=== PATIENT | female | born 1935 | race Caucasian/White ===

== ENCOUNTER → 2017-01-04 | Outpatient (CLI) | payer MEDICARE, OTHER ==
[~2017-01-04] MED LIST: ANTI25TA2 PO; CHOL50006 PO; FOSA70TA PO
--- NOTE | 2017-01-04 10:17 | RADRPT ---
EXAM DATE/TIME: 01/04/2017 09:43 [facility] COMPARISON: No previous studies available for comparison. INDICATIONS : Preoperative chest X-Ray. MEDICAL HISTORY : None. SURGICAL HISTORY : None. ENCOUNTER: Initial ACUITY: 1 day PAIN SCORE: 0/10 LOCATION: Bilateral chest FINDINGS: PA and lateral views of the chest demonstrate the lungs to be symmetrically aerated without evidence of mass, infiltrate or effusion. The heart size is moderately enlarged.. Osseous structures are int act. There is a large hiatal hernia at the GE junction. No prior studies are available for comparison . CONCLUSION: 1. No acute pulmonary infiltrates 2. Compensated cardiomegaly 3. Large hiatal hernia Ibrahima Grant MD on January 04, 2017 at 10:15 Board Certified Radiologist. This report was verified electronically.
[2017-01-04 11:02] LABS: BASOPHIL % 0.9 % (0.0-2.0); EOSINOPHIL # 0.2 TH/MM3 (0-0.4); EOSINOPHIL % 3.9 % (0.0-4.0); HEMATOCRIT 41.3 % (35.0-46.0); HEMO FLAGS DIFF FINAL; LYMPH % 28.7 % (9.0-44.0); LYMPHOCYTE # 1.5 TH/MM3 (1.0-4.8); MEAN CELL VOLUME 88.8 FL (80.0-100.0); MEAN CORPUSCULAR HEMOGLOBIN 29.3 PG (27.0-34.0); MONO % 8.4 % (0.0-8.0); NEUT % 58.1 % (16.0-70.0); PLATELET COUNT 205 TH/MM3 (150-450); RED BLOOD COUNT 4.65 MIL/MM3 (4.00-5.30); RED CELL DISTRIBUTION WIDTH 14.1 % (11.6-17.2); WHITE BLOOD COUNT 5.1 TH/MM3 (4.0-11.0)
[2017-01-04 11:20] LABS: WESTERGREN SEDIMENTATION RATE 13 mm/hr (0-30)
[2017-01-04 11:22] LABS: ANION GAP 6 MEQ/L (5-15); AST (GOT) 14 U/L (15-37); BICARBONATE 27.2 MEQ/L (21.0-32.0); BLOOD UREA NITROGEN 15 MG/DL (7-18); CHLORIDE 110 MEQ/L (98-107); GLOMERULAR FILTRATION RATE 79 ML/MIN (>89); GLUCOSE,FASTING 83 MG/DL (74-99); POTASSIUM 4.2 MEQ/L (3.5-5.1); SODIUM (NA) 143 MEQ/L (136-145)
[2017-01-04 11:26] LABS: ALKALINE PHOSPHATASE 52 U/L (45-117); ALT (GPT) 22 U/L (10-53); TOTAL BILIRUBIN ADULT 0.8 MG/DL (0.2-1.0)
[2017-01-04 11:56] LABS: BACTERIA, URINE OCC /hpf; BLOOD, URINE NEG (NEG); COMMENT (UR) CULT NOT INDICATED; CULTURE IF INDICATED CULT NOT INDICATED; GLUCOSE,URINE NEG (NEG); KETONE, URINE NEG (NEG); MUCUS URINE FEW /lpf (OCC); NITRITE,URINE NEG (NEG); PH, URINE 6.5 (5.0-8.5); SQUAMOUS EPITHELIAL CELL URINE 4 /hpf (0-5); URINE COLOR YELLOW (YELLW/STRAW)
--- NOTE | 2017-01-04 21:15 | EKG ---
Date Performed: 01/04/2017 Time Performed: 09:10:05 PTAGE: 81 years EKG: Sinus rhythm NORMAL ECG NO PREVIOUS TRACING DOCTOR: Mendez Layton Interpretating Date/Time 01/04/2017 21:14:57
== END ==
LOC: CPRE 08:40
PROVIDERS: ATTEND Orthopaedic Surgery
DX: Z01.810 Encounter for preprocedural cardiovascular examination (principal); Z01.811 Encounter for preprocedural respiratory examination; Z01.812 Encounter for preprocedural laboratory examination; M17.11 Unilateral primary osteoarthritis, right knee
CPT/HCPCS: 36415; 71020; 80053; 81001; 85025; 85652; 86140; 93005

== ENCOUNTER 2017-01-30 08:28 | Inpatient (IN) | payer MEDICARE, OTHER ==
--- NOTE | 2017-01-29 15:09 | MH ---
cc: MYCHAL DICKSON DATE OF ADMISSION: 01/30/2017 ADMITTING DIAGNOSIS End-stage osteoarthritis, right knee. PROPOSED SURGERY Total knee replacement arthroplasty, right knee. PRESENT HISTORY The patient has had problems with this knee for many years. She had a series of injections about five or six years ago, viscosupplementation, that they gave her relief for some time. The pain came back associated with instability and so she saw me in June of this year. She had evaluation and x-rays and she at that time wanted to repeat the viscosupplementation. She saw me on July 09, 2016 when she told me that she did not want to go through viscosupplementation, particularly considering the expense involved and wanted me to give her a shot of cortisone which was done. She had good relief of symptoms from it. She came back on December 31, 2016 indicating that she had recurrent pain and now quite concerned about instability and therefore requested that we proceed with total knee replacement arthroplasty. The diagnosis, the treatment and prognosis, the potential risks, hazards, complications and expected results were all discussed in detail. For detailed informed consent, please refer to my office records. Informed consent is obtained. PERSONAL/SOCIAL HISTORY She does not smoke or drink. She does not work. PAST MEDICAL HISTORY Nothing other than arthritis. PAST SURGICAL HISTORY 1. Hysterectomy. 2. Tubal ligation. 3. Polypectomy. 4. Cataract extraction. ALLERGIES None. PHYSICAL EXAMINATION An average built and nourished white female whose right knee has mild valgus deformity. There is mild swelling. No redness or warmth. She has tenderness over the lateral joint line. She has good range of motion of the right knee but no instability. There is exquisite tenderness over the lateral joint line. She has palpable pedal pulses and she moves her toes well. No distal edema. HEENT: Head normocephalic. Pupils react to light. Face symmetrical. HEART: Regular rhythm. No murmurs. LUNGS: Clear to auscultation. ABDOMEN: Soft and supple. ASSESSMENT AND PLAN The patient's preoperative work-up is satisfactory. Postoperative course, pain management and my specific protocol for knee replacements are all discussed. She wants to go to a assisted facility after surgery. This will be arranged. MD DEMETRIS Toscano/CHANCE /2:56 PM /3:03 PM
[~2017-01-30] VITALS: Ht 165.1 cm; Wt 79.0 kg
[2017-01-30] MEDS ORDERED: ceFAZolin 2 GM PREMIX 50 ML IV SCH (09:00)
[2017-01-30] MEDS ORDERED: METOPROLOL TARTRATE 25 MG TAB PO PRN (09:00)
[2017-01-30] MEDS ORDERED: POVIDONE IODINE 7.5% SCRUB 118 ML BOTTLE TOPICAL SCH (09:00)
[2017-01-30] MEDS ORDERED: POVIDONE IODINE 5% (ANTISEPSIS KIT) 4 APPLICATIONS EACH NARE PRN (09:00)
[2017-01-30] MEDS ORDERED: SODIUM CHLORID 0.9% 500 ML IV PRN (09:00)
[2017-01-30] MEDS ORDERED: CHLORHEXIDINE GLUCONATE 2 % 1 PACK (2 CLOTHS) TOPICAL PRN (09:00)
[2017-01-30] MEDS ORDERED: LACTATED RINGER'S 1000 ML IV PRN (09:00)
[2017-01-30] MEDS ORDERED: INSULIN HUMAN REGULAR 1,000 UNITS/10 ML VIAL SQ PRN (09:00)
[2017-01-30] MEDS ORDERED: VANCOMYCIN 1000 MG/NS 250 ML (for <70 kg) IV SCH ×2 (09:00)
[2017-01-30] MEDS ORDERED: ASPI-183 PO (09:28)
[2017-01-30] MEDS ORDERED: GLUC15009 PO (09:28)
[2017-01-30] MEDS ORDERED: MAGN100T2 PO (09:28)
[2017-01-30] MEDS ORDERED: GINK60TA10 PO (09:28)
[2017-01-30] MEDS ORDERED: CENTCHW3 PO (09:28)
[2017-01-30] MEDS ORDERED: VITA200C3 PO (09:28)
[2017-01-30] MEDS ORDERED: MISC1TAB PO (09:28)
[2017-01-30] MEDS ORDERED: CALC1TAB87 PO (09:28)
[2017-01-30] MEDS ORDERED: [UNRECOGNIZED DRUG - CODE] PO (09:28)
[2017-01-30] MEDS ORDERED: ASCO500C PO (09:28)
[2017-01-30] MEDS ORDERED: ROPIVACAINE PERI-ARTICULAR INJECTION. P-ARTICULR SCH ×5 (09:30)
[2017-01-30] MEDS ORDERED: SODIUM CHLORIDE 0.9% IV SCH ×3 (09:30→15:00)
[2017-01-30] MEDS ORDERED: TRANEXAMIC ACID IV SCH ×3 (09:30→15:00)
[2017-01-30] MEDS ORDERED: TOBRAMYCIN SULFATE 1200 MG VIAL ONE (10:31)
[2017-01-30] MEDS ORDERED: GENTAMICIN SULFATE 80 MG/2 ML VIAL ONE (10:31)
[2017-01-30] MEDS ORDERED: BUPIVACAINE HCL PF 0.5% 30 ML VIAL ONE (11:22)
[2017-01-30] MEDS ORDERED: SODIUM CHLORIDE 0.9% 20 ML VIAL ONE (11:22)
[2017-01-30] MEDS ORDERED: DEXAMETHASONE SOD PHOS PF 10 MG/ML VIAL ONE (11:22)
[2017-01-30] MEDS ORDERED: PHENYLEPH/NS 1000 MCG/10 ML SYR IV ONE (12:00)
[2017-01-30] MEDS ORDERED: PROPOFOL 200 MG/20 ML AMP IV ONE (12:00)
[2017-01-30] MEDS ORDERED: GLYCOPYRROLATE 1 MG/5 ML SYRINGE IV PUSH ONE (12:00)
[2017-01-30] MEDS ORDERED: NEOSTIGMINE 3 MG/3 ML SYR IV ONE (12:00)
[2017-01-30] MEDS ORDERED: MIDAZOLAM HCL 2 MG/2 ML VIAL IV ONE (12:00)
[2017-01-30] MEDS ORDERED: ONDANSETRON HCL 4 MG/2 ML VIAL IV PUSH ONE (12:00)
[2017-01-30] MEDS ORDERED: ROCURONIUM INJ 50 MG/5 ML SYRINGE IV PUSH ONE (12:00)
[2017-01-30] MEDS ORDERED: LIDOCAINE HCL 1% PF 5 ML SYRINGE OTHER ONE (12:00)
[2017-01-30] MEDS ORDERED: DEXAMETHASONE SOD PHOS 4 MG/ML VIAL IV ONE (12:00)
[2017-01-30] MEDS ORDERED: MORPHINE SULFATE 30 MG/30 ML PCA IV SCH (13:45)
[2017-01-30] MEDS ORDERED: Post-op Orders (for Pharmacy) MISC XX ONE (13:45)
[2017-01-30] MEDS ORDERED: NALOXONE HCL 0.4 MG/ML AMP IV PUSH PRN (13:45)
[2017-01-30] MEDS ORDERED: SODIUM CHLORIDE 0.9% FLUSH 5 ML FLUSH IVF PRN (13:45)
[2017-01-30] MEDS ORDERED: ONDANSETRON HCL 4 MG/2 ML VIAL IVP PRN (13:45)
[2017-01-30] MEDS ORDERED: ACETAMINOPHEN/HYDROcodone 325 MG/5 MG TAB PO PRN (13:45)
[2017-01-30] MEDS ORDERED: diphenhydrAMINE HCL 50 MG/ML VIAL IV PUSH PRN (13:45)
[2017-01-30] MEDS ORDERED: DO NOT ADM ANY ANTICOAGULANT DRUGS PRN (13:49)
--- NOTE | 2017-01-30 14:25 | MP ---
cc: MYCHAL DIOP DATE OF SURGERY: 01/30/2017 PREOPERATIVE DIAGNOSIS Osteoarthritis right knee with a valgus deformity. POSTOPERATIVE DIAGNOSIS Osteoarthritis right knee with a valgus deformity. OPERATIVE PROCEDURE Total knee replacement arthroplasty right knee using Biomet cemented components, femur 62.5 mm, tibia 67 mm, patella was not resurfaced. Polyethylene insert [address] Diop. ANESTHESIA General. TECHNIQUE After induction of general anesthesia and adductor block, the right lower extremity was thoroughly prepped with alcohol and ChloraPrep and draped in routine fashion. After application of Esmarch bandage the tourniquet was inflated to 300 mmHg. The midline slightly medial incision was made, deepened through subcutaneous tissue, limited flaps were raised. Medial parapatellar arthrotomy was carried out. As noted in valgus knees the tissue on the medial side very thin and had to be carefully elevated off the tibia and protected throughout the procedure. Debridement of the joint was carried out. Femoral canal opened anterior to the posterior cruciate ligament and the distal femoral cutting guide set at 60 degrees valgus was used to do the distal cut. The cut was not adequate and therefore it was recessed 2 mm. External tibial guide was used to cut the tibia referencing 6 mm in the central portion of medial tibial plateau. The bone was all cleaned up, the joint was debrided. AP femoral guide was used referencing epicondylar axis and the AP Whitesides line and set at proper external rotation and cut was made for a 65 mm femoral implant as indicated by the measurements. The bony surfaces prepared to receive the trial and the trials were implanted and it appears that the femur could be smaller in the medial lateral dimension and therefore using proper technique, femur size was reduced to 62.5 mm without notching the anterior cortex. Final trial implants were placed and with a 16-mm insert there is good extension, good flexion, good stability and good tracking. Patella was examined and there was no bare bone. Patella was quite small. Osteophytes were excised and it was decided not to resurface the patella. Bony surfaces were thoroughly lavaged and dried. A mixture of ropivacaine, clonidine, epinephrine and Toradol were injected periarticular, femoral canal plugged with bone and using 2 units of Simplex cement with 1200 mg of tobramycin in it, the tibia was cemented first, then the femur and the knee extended with a 16-mm insert. Once cement solidified and all excess cement was removed, the knee was tested and looks good. Joints were thoroughly lavaged and suctioned out without the spacer. The 16 mm spacer was then introduced and clipped. Final position, alignment, stability are all good. An eighth-inch Hemovac drain was left in the suprapatellar pouch. Closure was carried out in mid flexion with a few interrupted #2 Vicryl sutures and the rest with #2 Quill and 2-0 Vicryl for the fat and 3-0 Stratafix for the skin with Steri-Strips. Dressing was applied with Xeroform, 4x4s, ABD, Sof-Rol, ice bladder and Juan Antonio bandage. The patient was transferred to the recovery room in satisfactory condition. The patient tolerated the procedure well. TRANSFUSIONS AND COMPLICATIONS None. POSTOPERATIVE CONDITION Satisfactory. PROGNOSIS Good. ESTIMATED BLOOD LOSS 100 ccs. TOURNIQUET TIME 57 __(tourniquet deflated immediately after the cementing was completed.) MD DEMETRIS Toscano/CHAYA /1:46 PM /2:06 PM
--- NOTE | 2017-01-30 14:28 | RADRPT ---
EXAM DATE/TIME: 01/30/2017 14:13 [facility] COMPARISON: No previous studies available for comparison. INDICATIONS : Post op total right knee. MEDICAL HISTORY : None. SURGICAL HISTORY : None. ENCOUNTER: Initial ACUITY: 1 day PAIN SCORE: 0/10 LOCATION: Right Knee FINDINGS: AP and lateral views of the knee following arthroplasty reveals a prosthesis in anatomic alignment. F racture is not appreciated. Surgical drain is evident CONCLUSION: Status post total knee arthroplasty. Duane Fletcher MD FACR Board Certified Radiologist. This report was verified electronically.
[2017-01-30] MEDS: SODIUM CHLOR 0.9% 1000 ML INJ 1,000 ML IV SCH ×2 (14:34→23:15)
[2017-01-30] MEDS: KETOROLAC TROMETHAMINE 30 MG/ML (IVP) VIAL IVP SCH ×2 (16:00→23:16)
[2017-01-30] MEDS ORDERED: ceFAZolin INJ 2 MG in SODIUM CHLORIDE 0.9% INJ 100 ML IV SCH (18:00)
[2017-01-30] MEDS ORDERED: TEMAZEPAM 15 MG CAP PO PRN (21:00)
[2017-01-30] MEDS: SODIUM CHLORIDE 0.9% FLUSH 5 ML FLUSH IVF SCH (23:04)
[2017-01-31] VITALS (7 sets, daily range): BP systolic 104–119; BP diastolic 42–70; PULSE 65–86; RESP 16–17; TEMP 96–99.1; O2SAT 94–99
[2017-01-31] MEDS: ceFAZolin 2 GM PREMIX 50 ML IV SCH ×2 (02:49→10:04)
[2017-01-31 07:04] LABS: HEMATOCRIT 34.7 % (35.0-46.0); REVIEW FLAG FINAL
[2017-01-31 07:34] LABS: BICARBONATE 27.2 MEQ/L (21.0-32.0); POTASSIUM 4.5 MEQ/L (3.5-5.1)
[2017-01-31] MEDS: SODIUM CHLOR 0.9% 1000 ML INJ 1,000 ML IV SCH ×2 (08:28→19:32)
[2017-01-31] MEDS: KETOROLAC TROMETHAMINE 30 MG/ML (IVP) VIAL IVP SCH ×3 (08:30→23:36)
[2017-01-31] MEDS: MULTIVITAMINS/MINERALS THERAPEUTIC TAB PO SCH (08:30)
[2017-01-31] MEDS: SODIUM CHLORIDE 0.9% FLUSH 5 ML FLUSH IVF SCH ×2 (08:30→21:48)
[2017-01-31] MEDS: CELECOXIB 200 MG CAP PO SCH (08:30)
[2017-01-31] MEDS: ACETAMINOPHEN 1000 MG/100 ML VIAL IV SCH ×2 (08:30→21:47)
[2017-01-31] MEDS: ENOXAPARIN SODIUM 30 MG/0.3 ML SYRINGE SQ SCH (13:07)
[2017-01-31] MEDS ORDERED: ENOX30P SQ (14:47)
[2017-01-31] MEDS ORDERED: HYDR-3516 PO (14:47)
--- NOTE | 2017-01-31 14:53 | PD.ORT.PN ---
Subjective Post Op Day #: 1 Pain Scale: not much Subjective Remarks I think I am doing OK Range of Motion 10 to 100 degs Objective Vitals Last 72 hours Impressions Knee X-Ray 01/30/17 1332 Signed Impressions: Service Date/Time: Monday, January 30, 2017 14:13 - CONCLUSION: Status post total knee arthroplasty. Duane Fletcher MD Vital Signs Date Time Temp Pulse Resp B/P (MAP) Pulse Ox O2 Delivery O2 Flow Rate FiO2 01/31/17 08:00 97.3 70 16 119/56 (77) 99 01/31/17 04:00 98.9 77 16 115/70 (85) 98 01/31/17 00:00 99.1 86 17 118/58 (78) 95 01/30/17 21:41 Nasal Cannula 2.00 01/30/17 20:00 87 18 108/56 (73) 95 Nasal Cannula 2 01/30/17 18:00 85 18 100/58 (72) 94 Nasal Cannula 2 01/30/17 17:00 84 14 122/56 (78) 96 Nasal Cannula 2 01/30/17 16:00 94 18 138/68 (91) 98 Nasal Cannula 2 01/30/17 15:00 76 16 123/62 (82) 95 Nasal Cannula 2 I/O 01/30/17 01/30/17 01/30/17 01/31/17 01/31/17 01/31/17 07:00 15:00 23:00 07:00 15:00 23:00 Intake Total 449 ml 50 ml Output Total 400 ml 620 ml 250 ml Balance 49 ml -570 ml -250 ml Intake IV Total 449 ml 50 ml Output Urine Total 400 ml 500 ml 250 ml Drainage Total 120 ml Result Diagram: 01/31/17 0550 01/31/17 0550 Objective Remarks IN WC going to class. Moves knee and toes well DC plan discussed Assessment & Plan Ortho Post Op Day #: 1 Problem List: Assessment and Plan Doing well post right TKA To SNF in am Jose D Diop MD Jan 31, 2017 14:53
[2017-01-31] MEDS: ACETAMINOPHEN/HYDROcodone 325 MG/5 MG TAB PO PRN (19:36)
[2017-01-31] MEDS: DOCUSATE SODIUM 100 MG CAP PO SCH (21:48)
[2017-01-31] MEDS ORDERED: VANCOMYCIN 1,000 MG/NS 250 ML IV SCH ×2 (23:00)
[2017-01-31] MEDS ORDERED: VANCOMYCIN INJ 1 GM in SODIUM CHLOR 0.9% 250 ML INJ 250 ML IV SCH (23:00)
[2017-02-01] VITALS (8 sets, daily range): BP systolic 103–140; BP diastolic 49–71; PULSE 70–102; RESP 16–18; TEMP 97.1–99.1; O2SAT 92–97
[2017-02-01] MEDS: ENOXAPARIN SODIUM 30 MG/0.3 ML SYRINGE SQ SCH ×2 (01:27→12:24)
[2017-02-01] MEDS: SODIUM CHLOR 0.9% 1000 ML INJ 1,000 ML IV SCH ×3 (05:32→23:20)
--- NOTE | 2017-02-01 07:29 | PD.ORT.PN ---
Subjective Post Op Day #: 2 Pain Scale: comfortable Subjective Remarks Doing well, would like to wait till tomorrow for discharge Range of Motion Able to do quads and SLR Objective Vitals Vital Signs Date Time Temp Pulse Resp B/P (MAP) Pulse Ox O2 Delivery O2 Flow Rate FiO2 02/01/17 04:00 97.4 75 16 127/58 (81) 93 02/01/17 00:00 99.1 85 16 103/51 (68) 97 01/31/17 19:00 96.0 86 17 113/56 (75) 98 01/31/17 16:00 97.0 72 16 105/50 (68) 95 01/31/17 12:00 96.8 65 16 104/42 (62) 94 01/31/17 10:28 96 21 01/31/17 08:00 97.3 70 16 119/56 (77) 99 I/O 01/31/17 01/31/17 01/31/17 02/01/17 02/01/17 02/01/17 07:00 15:00 23:00 07:00 15:00 23:00 Intake Total 50 ml 50 ml 480 ml 300 ml Output Total 620 ml 250 ml Balance -570 ml -200 ml 480 ml 300 ml Intake Oral 480 ml 300 ml IV Total 50 ml 50 ml Output Urine Total 500 ml 250 ml Drainage Total 120 ml # Voids 2 2 # Bowel Movements 0 0 Result Diagram: 01/31/17 0550 01/31/17 0550 Objective Remarks Sleeping comfortably in bed. Wakes up easily. Dressings dry, moves toes well Assessment & Plan Ortho Post Op Day #: 2 Problem List: Assessment and Plan Doing well post right TKA To SNF in am Jose D Diop MD Feb 01, 2017 07:29
[2017-02-01] MEDS: SODIUM CHLORIDE 0.9% FLUSH 5 ML FLUSH IVF SCH ×2 (09:00→21:47)
[2017-02-01] MEDS: ACETAMINOPHEN/HYDROcodone 325 MG/5 MG TAB PO PRN (09:33)
[2017-02-01] MEDS: CELECOXIB 200 MG CAP PO SCH (09:33)
[2017-02-01] MEDS: DOCUSATE SODIUM 100 MG CAP PO SCH ×2 (09:33→21:45)
[2017-02-01] MEDS: MULTIVITAMINS/MINERALS THERAPEUTIC TAB PO SCH (09:34)
[2017-02-01] MEDS: ACETAMINOPHEN 1000 MG/100 ML VIAL IV SCH ×2 (09:34→21:46)
[2017-02-01] MEDS: KETOROLAC TROMETHAMINE 30 MG/ML (IVP) VIAL IVP SCH (09:34)
[2017-02-01] MEDS ORDERED: MAGNESIUM HYDROXIDE SUSP 30 ML CUP PO PRN (11:00)
[2017-02-01] MEDS ORDERED: LACTULOSE SYRUP 20 GM/30 ML CUP PO PRN (11:00)
[2017-02-02] VITALS: BP 121/58; PULSE 80; RESP 18; TEMP 98.5; O2SAT 95
[2017-02-02] MEDS: ENOXAPARIN SODIUM 30 MG/0.3 ML SYRINGE SQ SCH ×2 (00:43→13:24)
[2017-02-02 08:00] VITALS: BP 132/63; PULSE 75; RESP 18; TEMP 98.1; O2SAT 95
[2017-02-02] MEDS: DOCUSATE SODIUM 100 MG CAP PO SCH (09:00)
[2017-02-02] MEDS: ACETAMINOPHEN 1000 MG/100 ML VIAL IV SCH (09:03)
[2017-02-02] MEDS: MULTIVITAMINS/MINERALS THERAPEUTIC TAB PO SCH (09:03)
[2017-02-02] MEDS: CELECOXIB 200 MG CAP PO SCH (09:03)
[2017-02-02] MEDS: SODIUM CHLORIDE 0.9% FLUSH 5 ML FLUSH IVF SCH (09:04)
--- NOTE | 2017-02-02 11:13 | PD.ORT.PN ---
Subjective Post Op Day #: 3 Pain Scale: 2 Subjective Remarks Doing well, ready for discharge Distance Walked to bathroom etc Objective Vitals Vital Signs Date Time Temp Pulse Resp B/P (MAP) Pulse Ox O2 Delivery O2 Flow Rate FiO2 02/02/17 09:33 18 02/02/17 08:00 98.1 75 18 132/63 (86) 95 02/02/17 00:00 98.5 80 18 121/58 (79) 95 02/01/17 21:30 96 21 02/01/17 20:00 97.2 85 18 139/64 (89) 95 02/01/17 16:00 97.3 88 16 125/59 (81) 93 02/01/17 12:00 97.1 102 16 107/49 (68) 92 I/O 02/01/17 02/01/17 02/01/17 02/02/17 02/02/17 02/02/17 07:00 15:00 23:00 07:00 15:00 23:00 Intake Total 300 ml 580 ml 480 ml 240 ml Balance 300 ml 580 ml 480 ml 240 ml Intake Oral 300 ml 580 ml 480 ml 240 ml # Voids 2 3 1 2 # Bowel Movements 0 0 1 Result Diagram: 01/31/17 0550 01/31/17 0550 Objective Remarks sitting OOB, moves knee well 10deg to 100 deg. Dressings dry, moves toes well Assessment & Plan Ortho Post Op Day #: 3 Problem List: Assessment and Plan Doing well post right TKA To SNF today Jose D Diop MD Feb 02, 2017 11:13
--- NOTE | 2017-02-02 11:16 | HHI.DS ---
Discharge Summary Admission Date Jan 30, 2017 at 08:28 Discharge Date: Feb 02, 2017 Admitting Diagnosis OA right knee Diagnosis: (1) Total knee replacement status Diagnosis: Principal ICD Codes: Z96.659 - Presence of unspecified artificial knee joint Procedures TKA right Brief History This is a 81 year old female patient with long history of painful knee treated non op.Now has instability feeling in addition to pain. so, admitted for TKA CBC/BMP: 01/31/17 0550 01/31/17 0550 Significant Findings Laboratory Tests Test 01/31/17 05:50 Hematocrit 34.7 % (35.0-46.0) Calcium Level 7.9 MG/DL (8.5-10.1) Chloride Level 108 MEQ/L (98-107) Estimat Glomerular Filtration Rate 72 ML/MIN (>89) Imaging Last 72 hours Impressions Knee X-Ray 01/30/17 1332 Signed Impressions: Service Date/Time: Saturday, January 30, 2017 14:13 - CONCLUSION: Status post total knee arthroplasty. Duane Fletcher MD PE at Discharge sitting OOB, moves knee well 10deg to 100 deg. Dressings dry, moves toes well Hospital Course Routine TKA post op protocol with ice machine, pain management and rehab. She did very well Pt Condition on Discharge: Good Discharge Disposition: Discharge to SNF Discharge Instructions Diet Instructions: As Tolerated, No Restrictions Activities You Can Perform: Weight Bearing as Mary Activities to Avoid: Prolonged Standing, Bathing, Shower, Driving Jose D Diop MD Feb 02, 2017 11:16
[2017-02-02] MEDS: SODIUM CHLOR 0.9% 1000 ML INJ 1,000 ML IV SCH (11:32)
[2017-02-02 12:00] VITALS: BP 133/62; PULSE 84; RESP 18; TEMP 98; O2SAT 94
[2017-02-02 12:46] VITALS: O2SAT 97
[2017-02-02 16:00] VITALS: BP 136/62; PULSE 64; RESP 18; TEMP 96.4; O2SAT 97
== END 2017-02-02 18:56 | DRG 470 ==
LOC: HSDI 08:28 → N06A 20:20
PROVIDERS: ADMIT Orthopaedic Surgery; ATTEND Orthopaedic Surgery
PROC: 3E0T3BZ Introduction of Anesthetic Agent into Peripheral Nerves and Plexi, Percutaneous Approach (ICD-10-PCS; 2017-01-30)
PROC: 0SRC0J9 Replacement of Right Knee Joint with Synthetic Substitute, Cemented, Open Approach (ICD-10-PCS; principal; 2017-01-30 11:21)
DX: M17.11 Unilateral primary osteoarthritis, right knee (principal); M21.00 Valgus deformity, not elsewhere classified, unspecified site
CPT/HCPCS: 73560; 80048; 85014; 85018; 86850; 86900; 86901; 94150; C1776; J0131; J0690; J0735; J1100; J1580; J1650; J1885; J2250; J2270; J2370; J2405; J2710; J2795; J3010; J3260; J3370; J7030; J7050; J7120